=== PATIENT | male | born 1955 | race Caucasian/White ===

== ENCOUNTER 2018-10-12 11:43 | Inpatient (IN) ==
--- NOTE | 2018-10-12 09:17 | Discharge Summary ---
<Joanne Locke - Last Filed: 10/12/18 09:16> Orders not resulted at time of discharge: Pending orders 10/12/18 01:00 XR post op reverse apex RT [XR] Routine Hemoglobin and Hematocrit [HEME] Routine Date of Encounter: 10/12/18 - Hospital Course Hospital course: Mr. Huggins is a 63 year old male - Time Spent with Patient Total time spent providing and/or coordinating discharge services: - Discharge Medications Prescriptions: New Docusate Sodium [Colace] 100 mg PO BID 5 Days #10 capsule OxyCODONE Immed Rel [Roxicodone 5 MG] 5 mg PO Q6HR PRN 5 Days #20 tablet PRN Reason: Severe Pain Sodium Chloride [Sodium Chloride Tab] 1 gm PO DAILY tablet Continued ALPRAZolam [Xanax 1 MG Tablet] 1 mg PO HS PRN PRN Reason: Sleep Metoprolol Succinate [Toprol Xl] 100 mg PO DAILY Lisinopril [Zestril] 40 mg PO HS Home Medications: ALPRAZolam [Xanax 1 MG Tablet] 1 mg PO HS PRN 08/07/18 [History] Docusate Sodium [Colace] 100 mg PO BID 5 Days #10 capsule 10/12/18 [Rx] Lisinopril [Zestril] 40 mg PO HS 10/12/18 [History] Metoprolol Succinate [Toprol Xl] 100 mg PO DAILY 10/12/18 [History] OxyCODONE Immed Rel [Roxicodone 5 MG] 5 mg PO Q6HR PRN 5 Days #20 tablet 10/12/18 [Rx] Sodium Chloride [Sodium Chloride Tab] 1 gm PO DAILY tablet 10/13/18 [Rx] Allergies/Adverse Reactions: Allergy/AdvReac Type Severity Reaction Status Date / Time No Known Allergies Allergy Verified 08/07/18 12:24 Primary care physician: Joanne Koenig - Patient Status Disposition: Home, Self-Care Condition: Good - Discharge Instructions Follow Up With: [facility] [Other] - 10/15/18 3:00 pm (Please arrive 15 min early for paperwork. Please bring your photo ID, insurance card and and medications you are on. Thank you) Joanne Locke, PAC [Physician Appraisal Technician] - 10/23/18 2:45 pm Dusty Pak MD [Partnered Physician] - 11/11/18 5:15 pm <Joanne White - Last Filed: 10/13/18 17:07> - NOTES TO OUTPATIENT PROVIDER Notes to Outpatient Provider: Will need repeat BMP within 1 week and follow up with PCP to monitor hyponatremia. Per boiler repairman if Na drops below patient's baseline then schedule sooner follow up with Dr. Newman. Continue with 2L day fluid restriction and 2g Na diet. Orders not resulted at time of discharge: Pending orders 10/12/18 12:27 US anesthesia pain block [US] Routine 10/12/18 14:06 Surgical Pathology [PTH] Routine 10/14/18 04:00 Basic Metabolic Panel DAILY Hemoglobin and Hematocrit [HEME] DAILY Date of Encounter: 10/13/18 Time of Encounter: 12:40 - Discharge Diagnosis (1) Status post reverse total replacement of right shoulder Priority: Primary Status: Acute (2) Rotator cuff tear arthropathy of right shoulder Priority: Primary Status: Chronic (3) HTN (hypertension) Priority: Secondary Status: Chronic Qualifiers: Hypertension type: essential hypertension Qualified Code(s): I10 - Essential (primary) hypertension (4) Tobacco dependence Priority: Secondary Status: Chronic (5) Anxiety Priority: Secondary Status: Chronic - Hospital Course Hospital course: Mr. Huggins is a 63 year old male status post right TSR reverse 10/12/18 with medical history of HTN, tobacco use and anxiety. He participated in formal therapy and had uneventful hospital course. He does have chronic hyponatremia and being following outpatient by Dr. Pearl. I discussed with Dr. Hdz, nephrology,that patient's Na was 128 today and he recommends since patient is near baseline to continue with Dr. Pearl's recommendations for 2L fluid restriction daily and 2g Na diet. Will add daily Na supplement at this time. He is to follow up with PCP for repeat labs within the week and instructed if he drops below baseline sodium then schedule sooner follow up with Dr. Pearl than currently scheduled in November. Patient is stable for discharge at this time PCR - POD#1 s/p right TSR reverse 10/12 Patient seen at bedside, without complaints. A&O x 3 Afebrile, vital signs stable. Labs reviewed. H/H - 13.1/39.4 stable, asymptomatic Na 128 - near baseline - see note above Pain control: adequate Participating in PT. All questions and concerns addressed. Educated on use of incentive spirometer. Encouraged ambulation and proper hydration. Patient educated on post-operative restrictions and post-operative care. Assessment and plan: Continue with postoperative care Discharge plan: Home with outpatient therapy, discharge today. - Time Spent with Patient Total time spent providing and/or coordinating discharge services: Date of admission: 10/12/18 15:14 Primary care physician: Joanne Koenig Consults: 10/12/18 15:43 Consult to Occupational Therapy [CONS] Routine Comment: post shoulder surgery Reason for Consult: post shoulder surgery Does patient have active BEDREST order?: No Is patient medically & hemodynamically stable?: Yes Consult to Physical Therapy [CONS] Routine Comment: post shoulder surgery Reason for Consult: post shoulder surgery Does patient have active BEDREST order?: No Is patient medically & hemodynamically stable?: Yes Consult to Silverware Washer [CONS] Routine Reason for SW Consult: shoulder surgery RT Post Op Consult [CONS] Routine Discharging clinician: Dusty Pak Anticipated date of discharge: 10/13/18 Labs on day of discharge: Labs from last 24 hours 10/13/18 10/13/18 10/12/18 03:13 03:13 14:41 Hgb 13.1 13.3 Hct 39.4 40.2 Sodium 128 L Potassium 4.3 Chloride 94 L Carbon Dioxide 24 BUN 16 Creatinine 0.89 Est GFR ( Amer) > 60 Est GFR (Non-Af Amer) > 60 BUN/Creatinine Ratio 18 Glucose 131 H Calculated Osmolality 269 L Calcium 9.1 Short CBC 10/13/18 10/12/18 Range/Units 03:13 14:41 Hgb 13.1 13.3 (12.9-16.9) g/dL Hct 39.4 40.2 (37.5-50.1) % BMP 10/13/18 Range/Units 03:13 Sodium 128 L (136-145) mEq/L Potassium 4.3 (3.5-5.1) mEq/L Chloride 94 L (98-107) mEq/L Carbon Dioxide 24 (23-29) mEq/L BUN 16 (8-23) mg/dL Creatinine 0.89 (0.70-1.30) mg/dL Glucose 131 H (70-105) mg/dL Calcium 9.1 (8.6-10.3) mg/dL - Impressions ITS Impressions Shoulder X-Ray 10/12/18 01:00 IMPRESSION: Status post right total shoulder arthroplasty without immediate complications. D/ / Susan Kilpatrick MD / Susan Kilpatrick MD Interpreting Provider: Susan Kilpatrick MD - Patient Status Functional capacity at discharge: independent ambulation Overall status at discharge: patient is back to baseline - Diet and Activity Activity: as per physical therapy Diet: advance to your usual diet (2g Na diet, 2L fluid restriction)
--- NOTE | 2018-10-12 10:44 | Anesthesia Evaluation PreOp ---
Date of Encounter: 10/12/18 Time of Encounter: 12:08 - Past History Planned Operation: Right Total Shoulder Cardiac History: HTN Pulmonary History: Smoker (30 years), Snore PERIPATOLOGIST History: Denies Any Significant HX Other Medical History: Other (anxiety) Anesthesia History: No Prior Anesthetic Complications, Past Anesthesia Alcohol Use: occasionally, recent Drug use: none Medications and Allergies ALPRAZolam [Xanax 1 MG Tablet] 1 mg PO HS PRN 08/07/18 [History] Metoprolol [Lopressor] 25 mg PO BID 08/07/18 [History] Lisinopril [Zestril] 40 mg PO DAILY #20 tablet 08/23/18 [Rx] Docusate Sodium [Colace] 100 mg PO BID 5 Days #10 capsule 10/12/18 [Rx] OxyCODONE Immed Rel [Roxicodone 5 MG] 5 mg PO Q6HR PRN 5 Days #20 tablet 10/12/18 [Rx] Allergy/AdvReac Type Severity Reaction Status Date / Time No Known Allergies Allergy Verified 08/07/18 12:24 - Meds/Allergy Pre-op Review Medications Reviewed: Yes Allergies Reviewed: Yes Beta Blockers on Current Med List: Yes If Beta Blockers taken, Date/Time (Last Dose taken): 10/12/2018 at 1000 Anesthesia Results - Labs Laboratory Tests 09/22/18 09/22/18 09/22/18 08:25 08:25 08:25 WBC 8.0 Hgb 12.6 L Hct 38.3 Plt Count 293 PT 10.6 INR 0.9 APTT 32.3 Sodium 131 L Potassium 5.0 BUN 24 H Creatinine 1.31 H - Imaging EKG: report reviewed (08/23/2018 Sinus rhythm Probable left atrial enlargement Minimal ST elevation, inferior leads) Chest x-ray: report reviewed (08/21/2018 IMPRESSION: 1. No active pulmonary disease.) Anesthesia Exam O2 Sat Height 1.85 m Weight 66.678 kg O2 Sat by Pulse Oximetry 99 Vital Signs Temp Pulse Resp BP Pulse Ox 98.3 F 60 18 155/77 99 10/12/18 12:14 10/12/18 12:14 10/12/18 12:14 10/12/18 12:14 10/12/18 12:14 Height: 6'1'' Weight: 147 lbs NPO (# of Hours): 8 Pain Scale: 5 (right shoulder) Pain Scale Used: Numeric (1 - 10) - HEENT Pupil (Motor): EOMI Mallampati: II Teeth: Normal Oral Opening: Greater than 3 - PERIPATOLOGIST LOC: Oriented PERIPATOLOGIST Motor: Normal RUE, Normal LUE, Normal RLE, Normal LLE, Normal Face PERIPATOLOGIST Sensory: Normal: RUE, LUE, RLE, LLE, Face - Cardiac Rhythm: Regular Murmur: None - Pulmonary Breath Sounds: bilateral Clear Respiratory Effort: Symmetrical Anesthesia Assess/Plan ASA Score: 2 Level of consciousness: Cooperative, Oriented, Tranquil Anesthetic Plan: General, Regional Nerve Block Regional Nerve Block Plan: Supraclavicular Monitoring Plan: Standard Monitors Recovery Plan: PACU
--- NOTE | 2018-10-12 11:47 | History & Physical Report ---
Date of Encounter: 10/12/18 Time of Encounter: 11:46 24 Hour HP Update - Instructions Instructions: If the History and Physical is less than 30 days old and was completed prior to A.M. admission and or procedure and has NOT been updated on calendar day of procedure please complete this update prior to performing procedure. - Update Patient reports changes in Medical Condition: No Changes in examination, assessment, or condition: No Changes in Medication: No Preop tests/diagnostics Reviewed: Yes Surgery Remains Indicated: Yes Consent for Planned Operative Procedure(s) Verified: Yes - Pre-Operative Checklist Preoperative Checklist Indicated: No Prophylactic Antibiotic Ordered: Yes Is VTE Prophylaxis Indicated?: Yes
[2018-10-12] MEDS ORDERED: Albuterol 2.5 MG/3 ML NEBULIZER IH ONE (12:14)
[2018-10-12] MEDS ORDERED: CeFAZolin Syr 2,000MG/20 ML 2,000 MG/20 ML SYRINGE IVPB ONE (12:14)
[2018-10-12] MEDS ORDERED: Ringers Solution, Lactated 1,000 ML IVC SCH ×2 (12:15→15:43)
[2018-10-12] MEDS ORDERED: Ethanol\\Acetic Acid\\Na Ace\\Ben 1,000 ML IRRIG.SOLN IR ONE (12:20)
[2018-10-12] MEDS ORDERED: *HR* OxyCODONE Immed Rel 5 MG TABLET PO PRN (12:28)
[2018-10-12] MEDS ORDERED: *HR* HYDROmorphone (PF) 1 MG/ML SYRINGE IVP PRN (12:28)
[2018-10-12] MEDS ORDERED: Ondansetron 4 MG/2 ML VIAL IVP ONE (12:28)
[2018-10-12] MEDS ORDERED: *HR* Promethazine 25 MG/ML VIAL IVP PRN (12:28)
[2018-10-12] MEDS ORDERED: ROPIVACAINE HCL/PF 0.5% 30 ML VIAL ONE (12:37)
[2018-10-12] MEDS ORDERED: ROPIVACAINE/PF/NS SYRINGE INTRAART ONE (12:42)
[2018-10-12] MEDS ORDERED: Dexamethasone 4 MG/ML VIAL ONE ×2 (12:43→13:22)
[2018-10-12] MEDS ORDERED: *HR* Succinylcholine 200 MG/10 ML VIAL IVP ONE (13:22)
[2018-10-12] MEDS ORDERED: Lidocaine -MPF 4% 5 ML AMPUL ONE (13:22)
[2018-10-12] MEDS ORDERED: Ondansetron 4 MG/2 ML VIAL ONE (13:22)
[2018-10-12] MEDS ORDERED: *HR* Midazolam HCl 2 MG/2 ML VIAL ONE (13:22)
[2018-10-12] MEDS ORDERED: Lidocaine -MPF 2% 2 ML VIAL ONE (13:22)
[2018-10-12] MEDS ORDERED: *HR* FentaNYL (PF) 100 MCG/2 ML VIAL ONE (13:22)
[2018-10-12] MEDS ORDERED: *HR* Propofol 200 MG/20 ML VIAL IVP ONE (13:22)
[2018-10-12] MEDS ORDERED: *HR* PHENYLEPHRINE 1,000 MCG/10 ML SYRINGE IVP ONE (13:23)
[2018-10-12] MEDS ORDERED: EPHEDrine 50 MG/ML VIAL ONE (13:33)
--- NOTE | 2018-10-12 14:01 | Anesthesia Procedures ---
Date of Encounter: 10/12/18 Time of Encounter: 12:45 Procedures: Anesthesia - Nerve Block Procedure Date: 10/12/18 Time: 12:45 Allergies/Adv Reactions: NKA Pre-op Diagnosis: Right shoulder rotator cuff arthropathy Surgical Procedure: Right total shoulder replacement, reverse Checklist: Correct Patient Identifier, Correct procedure, History checked Correct side: Right Blood Thinner: No Monitor Applied: EKG, BP, Pulse Oximetry Supplemental Oxygen via Nasal Cannula (L/min): 2 Sedation: Versed (mg): 2 Sedation: Fentanyl (mcg): 100 Indication: Post Op Analgesia Pre-op Neuro Deficits: No Block Type: Supraclavicular, Other (SCP/ICB) Catheter placed: No Sterile Technique: Yes Ultrasound used: Yes Anatomy identified: Yes Visual spread of Local: Yes Neuro Stimulation: No Blood on Needle Aspiration: No Smooth Injection of Local: Yes Pain with Injection of Local: No Prep: Chlorhexadine Needle: 22 x 50 mm Stimuplex Local: Ropivacaine (Ropivicaine 0.5% 30ml supraclavicular, Ropivicaine 0.25% 15ml SCP/ICB), Other (Decadron 8mg) Volume (cc): 45 Number of Attempts: 1 Complications: None/effective block Vitals: Vital Signs Temperature 98.3 F 10/12/18 12:14 Pulse Rate 60 10/12/18 12:14 Respiratory Rate 18 10/12/18 12:14 Blood Pressure 155/77 10/12/18 12:14 O2 Sat by Pulse Oximetry 99 10/12/18 12:14 Temperature 98.3 F 10/12/18 12:52 Pulse Rate 60 10/12/18 12:52 Respiratory Rate 18 10/12/18 12:52 Blood Pressure 155/77 10/12/18 12:52 O2 Sat by Pulse Oximetry 99 10/12/18 12:52
--- NOTE | 2018-10-12 14:13 | Orthopedic Operative Note ---
Date of procedure: 10/12/18 Pre-op diagnosis: Right shoulder cuff tear arthropathy Post-op diagnosis: same Procedure: Procedure: Total Shoulder Replacment Reverse, right Estimated blood loss: 100 cc Hardware: Metal and polyethylene replacement: Arthrex 28, +2 , 30 mm post glenoid baseplate, 4 locking 5.5 screw, 42+4 glenosphere, 13 apex humeral stem, poly insert 3 and 6 metal Exam Under anesthesia: Full motion no instability Procedural Notes: Referable rotator cuff tear Operative procedure: The patient was brought to the operating room and placed on the operating room table. After general anesthesia was administered the operative shoulder was examined. Findings were noted. The patient was placed in the modified beachchair position. All pressure points were padded appropriately. And the head was stabilized in the neutral position. The operative extremity was prepped and draped in the sterile surgical fashion. The patient received IV antibiotics prior to skin incision. A standard deltopectoral approach was made to the operative shoulder. Incision was made to the skin and subcutaneous tissue,hemo stasis was obtained with Bovie cautery. Using careful blunt dissection the cephalic vein was identified and mobilized medially. The deltopectoral interval was developed and the clavipectoral fascia was incised. The subscap was released off the lesser tuberosity and tagged with #2 FiberWire suture subscap was irreparable. The humerus was dislocated patient noted to have irreparable tear supraspinatus tendon, and the humeral cut was made along the anatomic neck. Anterior and posterior Bankart retractors were placed to expose the glenoid. The glenoid guide was seated and the centering hole was made. It was reamed with the appropriate reamer. The 28, +2, 30 mm post, baseplate was seated and secured with 4 locking 5.5 screw. The baseplate was irrigated and dried and the 42+4 Glenosphere was seated and secured with the Castillo taper. The Castillo taper was tested and found to be secure, glenosphere fixation was secondarily secured with the central screw. The humerus was redislocated and prepared with the diaphyseal reamers, followed by a broaching process up to the appropriate size 13 in the patient's anatomic version. The metaphyseal reamer was then utilized. Trial reduction found the shoulder to be relocatable. Trial components were removed and 13 stem was impacted in place in the patient's anatomic version. Trial reduction found the shoulder to be relocatable and stable with the appropriate 6 metal and 3 Luna Trial component was removed and the real implant was seated and secured the shoulder was reduced. The shoulder had excellent motion and excellent stability and no evidence of dislocation. The deep tissue was irrigated with pulse irrigation. The deltopectoral interval was closed with a running #1 PDS suture, subcutaneous tissue was irrigated and closed with 0 PDS suture, the skin was closed with Dermabond. The patient was placed in a sterile dressing, abduction brace and extubated. The patient was then transferred to the recovery room in stable condition. Anesthesia: GETA Surgeon: Dusty Pak Was there an residential assistant present: No Estimated blood loss (cc): 100 Condition: stable Disposition: PACU
--- NOTE | 2018-10-12 14:39 | Anesthesia Evaluation Post Op ---
Date of Encounter: 10/12/18 Time of Encounter: 14:31 - Vital Signs Vital Signs: vss - Lungs Lungs: Clear Ascult./Percussion - Airway Airway: Non-obstructed - Cardiovascular Baseline Rhythm - Mental Status Mental Status: Asleep with brisk response to light stimulation - Pain Pain Scale used: Nurys (Faces) (tolerable) - Nausea Vomiting Nausea Vomiting: Not Present - Hydration Hydration: Ice chips - Discharge PostOp Status: Transfer Patient to floor
[2018-10-12 15:10] LABS: Hematocrit 40.2 % (37.5-50.1); Hemoglobin 13.3 g/dL (12.9-16.9)
[2018-10-12] MEDS ORDERED: *HR* OxyCODONE/APAP 5/325 TABLET PO PRN (15:43)
[2018-10-12] MEDS ORDERED: ALPRAZolam 1 MG TABLET PO PRN (15:43)
[2018-10-12] MEDS ORDERED: Sennosides 8.6 MG TABLET PO PRN (15:43)
[2018-10-12] MEDS ORDERED: traMADol 50 MG TABLET PO PRN (15:43)
[2018-10-12] MEDS ORDERED: MOM Conc 10 ML UD.LIQ PO PRN (15:43)
[2018-10-12] MEDS ORDERED: Ondansetron 4 MG/2 ML VIAL IVP PRN (15:43)
[2018-10-12] MEDS ORDERED: Temazepam 15 MG CAPSULE PO PRN (15:43)
[2018-10-12] MEDS: *HR* Enoxaparin 30 MG/0.3 ML SYRINGE SQ SCH (17:23)
[2018-10-12] MEDS ORDERED: *HR* Enoxaparin 30 MG/0.3 ML SYRINGE SQ SCH (18:00)
[2018-10-12] MEDS ORDERED: Lisinopril 20 MG TABLET PO SCH (21:00)
[2018-10-13] MEDS: *HR* OxyCODONE Immed Rel 5 MG TABLET PO PRN ×4 (01:58→14:11)
[2018-10-13 04:01] LABS: Hematocrit 39.4 % (37.5-50.1); Hemoglobin 13.1 g/dL (12.9-16.9)
[2018-10-13 04:20] LABS: BUN/Creatinine Ratio 18 (6-26); Blood Urea Nitrogen 16 mg/dL (8-23); Calcium 9.1 mg/dL (8.6-10.3); Carbon Dioxide 24 mEq/L (23-29); Chloride 94 mEq/L (98-107); Glucose 131 mg/dL (70-105); Osmolality,Calculated 269 (280-300); Potassium 4.3 mEq/L (3.5-5.1); Sodium 128 mEq/L (136-145); eGFR For African Americans > 60 (> 60); eGFR For Non-African Americans > 60 (> 60)
[2018-10-13] MEDS: *HR* Enoxaparin 30 MG/0.3 ML SYRINGE SQ SCH (06:01)
--- NOTE | 2018-10-13 06:37 | Orthopedics Progress Note ---
Date of Encounter: 10/13/18 Time of Encounter: 06:37 Subjective Interval history: Patient was seen this morning doing well without complaints. Afebrile vital signs stable. Operative extremity: Neurovascularly intact Dressing clean dry and intact Calves nontender Assessment and plan: Continue with postoperative care Plan for discharge today Objective Vital signs: Vital Signs Temp Pulse Resp BP Pulse Ox 10/13/18 03:47 97.5 F L 56 14 155/79 97 10/13/18 00:09 148/89 10/12/18 23:35 97.7 F 54 14 178/76 97 10/12/18 19:17 58 18 163/87 99 10/12/18 18:15 97.3 F L 62 18 172/80 100 10/12/18 17:30 97.4 F L 58 18 153/78 96 10/12/18 16:30 97.4 F L 60 18 160/88 98 10/12/18 16:00 97.5 F L 60 18 171/92 98 10/12/18 14:55 97.5 F L 62 15 159/90 96 10/12/18 14:45 97.5 F L 66 14 157/84 96 10/12/18 14:35 69 18 166/87 96 10/12/18 14:25 91 14 150/97 100 10/12/18 14:15 97.6 F 61 18 131/72 100 10/12/18 12:52 98.3 F 60 18 155/77 99 10/12/18 12:47 58 18 176/92 100 10/12/18 12:18 18 99 10/12/18 12:14 98.3 F 60 18 155/77 99 Intake and Output 10/12/18 10/12/18 10/13/18 15:59 23:59 07:59 Intake Total 20 / 120 100 / 120 0 / 0 Output Total 50 / 50 Balance -30 / 70 100 / 70 0 / 0 Intake: IV Fluids 20 / 120 100 / 120 Ancef Syringe 2,000 MG/20 ML 2, 20 / 20 000 mg In 20 ml @ 200 mls/hr IVPB PREOP ONE Rx#:[id number] Ancef 2,000 MG In 0.9 % Sodium 100 / 100 Chloride 100 ML @ 200 mls/hr IVPB Q8HR LANNY Rx#:[id number] Oral 0 / 0 Output: Estimated Blood Loss 50 / 50 Other: Meal Dinner Percent of Meal Consumed 60% # Voids 1 1 Weight 66.678 kg - Labs CBC & BMP: 10/13/18 03:13 10/13/18 03:13 Labs: Abnormal lab results Sodium 128 mEq/L (136-145) L 10/13/18 03:13 Chloride 94 mEq/L (98-107) L 10/13/18 03:13 Glucose 131 mg/dL (70-105) H 10/13/18 03:13 269 (280-300) L 10/13/18 03:13 Consult Discharge Plan - Plan Referrals: Joanne Koenig [Primary Care Provider] - Joanne Locke, PAC [Physician Registered Nurse Cardiac Telemetry] - 10/23/18 2:45 pm Dusty Pak MD [Partnered Physician] - 11/11/18 5:15 pm
--- NOTE | 2018-10-13 07:54 | Physician Discharge Referral ---
Home Health/Hosp Referral Info Transfer to: Home Health Attending Provider: Dr. Pak - Diagnosis (1) Status post reverse total replacement of right shoulder Priority: Primary Status: Acute (2) Rotator cuff tear arthropathy of right shoulder Priority: Primary Status: Chronic (3) HTN (hypertension) Priority: Secondary Status: Chronic (4) Tobacco dependence Priority: Secondary Status: Chronic (5) Anxiety Priority: Secondary Status: Chronic - Respiratory Orders None Smoking Cessation: Smoking cessation has been advised. For more information, call the [place] Tobacco Quit Line at 0-939-EGNY-NOW. - Diet/Nutrition Diet/Nutrition Orders: Regular - Activity Activity Orders: Up ad champ, Ambulate, Chair - Services Needed Following services are medically necessary services: Nursing, Home Health Aide, Physical Therapy, Occupational Therapy Home Care Orders: Opsite dressing, leave intact until first post-operative visit. Zipline/Johnathan in place, plan to remove at post-operative day #14-16. If dressing becomes >50% saturated, contact office, remove dressing and place appropriate dressing in its place. Do not allow for dressing to get wet. Shoulder Precautions x 6 weeks. Apply cold therapy wrap 3-6x/day for 20 minutes at a time. Encourage ambulation throughout the day. Use Incentive spirometer 10x/hour. Elevate affected extremity above heart as tolerated. NWB to affected upper extremity x 6 weeks. Will remove brace at first post-operative appointment. OK to remove during PT/OT and Home exercises. - Transfer Medications Home Medications: ALPRAZolam [Xanax 1 MG Tablet] 1 mg PO HS PRN 08/07/18 [History] Docusate Sodium [Colace] 100 mg PO BID 5 Days #10 capsule 10/12/18 [Rx] Lisinopril [Zestril] 40 mg PO HS 10/12/18 [History] Metoprolol Succinate [Toprol Xl] 100 mg PO DAILY 10/12/18 [History] OxyCODONE Immed Rel [Roxicodone 5 MG] 5 mg PO Q6HR PRN 5 Days #20 tablet 09/26 11/13 [Rx] Allergies/Adverse Reactions: Allergy/AdvReac Type Severity Reaction Status Date / Time No Known Allergies Allergy Verified 08/07/18 12:24 Certification: Further, I certify that my clinical findings support that this patient is homebound (i.e. absences from home require considerable and taxing effort and are for medical reasons or voodoo services or infrequently or short duration when for other reasons) because: Homebound Reason: Post-surgery restriction and or conditions limit ability to l eave home Attestation: My signature below is to certify that this patient is under my care and that I, or nurse practitioner, or a physician mobile sales assistant working with me, has a [id number] encounter with this patient.
[2018-10-13] MEDS ORDERED: Metoprolol XL (24 HR) Succ 50 MG TAB.ER.24H PO SCH (09:00)
[2018-10-13 10:46] VITALS: BP 153/77
== END 2018-10-13 14:51 | disposition home or self-care (01) | DRG 483 ==
LOC: SAMDAY 11:43 → 3ANU 15:14
PROVIDERS: ADMIT Orthopaedic Surgery; ATTEND Orthopaedic Surgery